=== PATIENT | female | born 1965 | race Caucasian/White ===

== ENCOUNTER 2017-08-09 13:56 | Emergency (ER) | END 2017-08-09 16:50 | disposition home or self-care (01) ==

== ENCOUNTER 2018-06-17 12:27 | Emergency (ER) | payer MEDICAID ==
[~2018-06-17] VITALS: Wt 60.0 kg
[~2018-06-17 12:27] MED LIST: IBUP-1561 PO
[2018-06-17 12:29] VITALS: BP 153/76; PULSE 99; RESP 18
--- NOTE | 2018-06-17 13:14 | ERD ---
ER Documentation Chief Complaint Chief Complaint LEFT EAR PAIN HPI 53-year-old female, presents emergency department, complaining of left ear pain, dull, constant, 8/10, that started last night. The patient reports 1 week with upper respiratory symptoms including runny nose and subjective fever. ROS All systems reviewed and are negative except as per history of present illness. Medications Home Meds Active Scripts Cetirizine Hcl* (Zyrtec*) 10 Mg Capsule, 10 MG PO DAILY, #10 TAB.CHEW Prov:ETHAN TORRES MD 06/17/18 Ibuprofen* (Motrin*) 600 Mg Tab, 600 MG PO Q6H PRN for PAIN AND OR ELEVATED TEMP, #20 TAB Prov:ETHAN TORRES MD 06/17/18 Amoxicillin* (Amoxicillin*) 500 Mg Cap, 500 MG PO TID for 7 Days, CAP Prov:ETHAN TORRES MD 06/17/18 Ibuprofen* (Motrin*) 400 Mg Tab, 400 MG PO Q6, #20 TAB Prov:DONNIE WISE PA-C 08/09/17 Allergies Allergies: Coded Allergies: No Known Allergy (Unverified , 08/09/17) PMhx/Soc Hx Alcohol Use: No Hx Substance Use: No Hx Tobacco Use: No FmHx Family History: No diabetes, No coronary disease Physical Exam Vitals Vital Signs Date Temp Pulse Resp B/P (MAP) Pulse Ox O2 O2 Flow FiO2 Time Delivery Rate 06/17/18 97.9 99 18 153/76 99 12:29 (101) Physical Exam Patient alert, oriented, vital signs stable. HEENT: Normocephalic, atraumatic. EYES: PERRLA, EOMI, Sclera and conjunctiva appear normal. EARS: Left ear with significant tympanic membrane erythema, retraction and opacity with edema of the canal. Contralateral ear normal. THROAT: Erythematous oropharynx. NECK: Supple, No lymphadenopathy. Full ROM without pain or tenderness. HEART: RRR, no rubs, murmurs, clicks or gallops. LUNGS: Clear to auscultation. ABDOMEN: Soft, non-tender without masses or hepatosplenomegaly. EXTREMITIES: No edema bilaterally. BACK: Full ROM, no deformity, normal back exam NEURO: Cranial nerves grossly intact, no motor or sensory deficit Procedures/MDM Vital signs stable, differential diagnosis include but not limited to: infection bacterial/viral/fungal. Tonsillitis, eustachian dysfunction, allergies, foreign body, cholesteatoma. Less likely mastoiditis, malignant otitis, meningitis. Physical examination and clinical presentation consistent most likely with left otitis media. During the ED course the patient remained stable, no new complaints. Clinical impression discussed with the patient who agrees with management. The patient is stable to be treated outpatient and will be discharged home with a Rx for antibiotics and ibuprofen. Some side effects of prescribed medications (headache, rash, nausea, vomiting, diarrhea, interactions with other medications) were reviewed. The patient was instructed to follow up with the primary care provider in the next 48h. If symptoms persist, worsen or new symptoms develop, then patient should return to the ED immediately. Disclaimer: Inadvertent spelling and grammatical errors are likely due to EHR/dictation software use and do not reflect on the overall quality of patient care. Also, please note that the electronic time recorded on this note does not necessarily reflect the actual time of the patient encounter. Departure Diagnosis: Primary Impression: Left otitis media with effusion Condition: Stable Additional Instructions: Thank you very much for allowing us to participate in your care. Your health and safety is our top priority at [facility]. The evaluation in the emergency department has been done to rule out an acute emergency, therefore, chronic conditions like malignancy or other diseases have not been evaluated; therefore, you need to follow up with a primary care provider in the next 48h. If symptoms persist, worsen or new symptoms develop, then patient should return to the ED immediately. Call your primary care doctor TOMORROW for an appointment during the next 2-4 days and bring all the information provided. Have prescriptions filled and follow precisely the directions on the label. If the symptoms get worse and your provider is unavailable, return to the Emergency Department immediately. ETHAN TORRES MD Jun 17, 2018 13:14
[2018-06-17] MEDS ORDERED: IBUP-1542 PO (13:40)
[2018-06-17] MEDS ORDERED: CETI10CA PO (13:40)
[2018-06-17] MEDS ORDERED: AMOX500C2 PO (13:40)
== END 2018-06-17 14:00 | disposition home or self-care (01) ==
LOC: FTE 12:27
DX: H65.92 Unspecified nonsuppurative otitis media, left ear (principal)
CPT/HCPCS: 99283